=== PATIENT | female | born 1995 | race Caucasian/White ===

== ENCOUNTER 2018-02-14 14:25 | Emergency (ER) | payer OTHER ==
[~2018-02-14] VITALS: Ht 160 cm; Wt 59.0 kg
[2018-02-14 14:35] VITALS: BP 112/73; Ht 160 cm; Wt 59.0 kg
== END 2018-02-14 16:09 | disposition home or self-care (01) ==
LOC: ED 14:25
DX: S61.211A Laceration without foreign body of left index finger without damage to nail, initial encounter (principal); F17.210 Nicotine dependence, cigarettes, uncomplicated; F31.9 Bipolar disorder, unspecified; Z88.5 Allergy status to narcotic agent; W25.XXXA Contact with sharp glass, initial encounter; Y93.89 Activity, other specified; Y92.89 Other specified places as the place of occurrence of the external cause; Y99.8 Other external cause status
CPT/HCPCS: J2001; Q0092

== ENCOUNTER 2018-02-22 07:01 | Emergency (ER) | payer OTHER ==
[~2018-02-22] VITALS: Ht 160 cm; Wt 59.4 kg
[2018-02-22 07:09] VITALS: BP 127/59; Ht 160 cm; Wt 59.4 kg
== END 2018-02-22 07:43 | disposition home or self-care (01) ==
LOC: ED 07:01
DX: S61.412D Laceration without foreign body of left hand, subsequent encounter (principal); F31.9 Bipolar disorder, unspecified; Z88.5 Allergy status to narcotic agent

== ENCOUNTER 2018-03-02 09:31 | Emergency (ER) | payer OTHER ==
[~2018-03-02] VITALS: Ht 160 cm; Wt 59.0 kg
[2018-03-02 09:48] VITALS: BP 121/68; Ht 160 cm; Wt 59.0 kg
== END 2018-03-02 10:12 | disposition home or self-care (01) ==
LOC: ED 09:31
DX: S61.211D Laceration without foreign body of left index finger without damage to nail, subsequent encounter (principal); F31.9 Bipolar disorder, unspecified; Z88.5 Allergy status to narcotic agent; X58.XXXD Exposure to other specified factors, subsequent encounter

== ENCOUNTER 2019-11-12 07:43 | Emergency (ER) | payer OTHER ==
[~2019-11-12] VITALS: Ht 152.4 cm; Wt 49.9 kg
[2019-11-12 07:54] VITALS: Ht 152.4 cm; Wt 49.9 kg
[2019-11-12 09:06] VITALS: BP 111/78
== END 2019-11-12 09:06 | disposition home or self-care (01) ==
LOC: ED 07:43
DX: S80.862A Insect bite (nonvenomous), left lower leg, initial encounter (principal); S80.861A Insect bite (nonvenomous), right lower leg, initial encounter; Z88.5 Allergy status to narcotic agent; W57.XXXA Bitten or stung by nonvenomous insect and other nonvenomous arthropods, initial encounter; Y93.89 Activity, other specified; Y92.89 Other specified places as the place of occurrence of the external cause; Y99.8 Other external cause status